=== PATIENT | female | born 1985 | race American Indian/Alaskan Native ===

== ENCOUNTER 2018-10-11 10:29 | Emergency (ER) | payer MEDICAID, OTHER ==
[2018-10-11 10:59] VITALS: BP 135/91
--- NOTE | 2018-10-11 12:00 | Emergency Department Report ---
HPI - General Chief Complaint: Pain General Time Seen by Provider: 10/11/18 11:48 - HPI HPI: This is a 33-year-old female who presents to ED complaining of generalized body aches for the past 2 months. Patient states that she has not been able to see her primary care physician. Patient states every time she is ago that she is unable to see her. Patient states that she is on the Depo-Provera for contraceptives that she has not had a cycle in a long time. She denies fevers/chills/nausea vomiting diarrhea/abdominal pain/chest pain or any other symptoms. ED Past Medical Hx - Past Medical History Previous Medical History?: No - Surgical History Past Surgical History?: Yes Additional Surgical History: - Social History Smoking Status: Current Every Day Smoker Substance Use Type: Alcohol - Medications Home Medications: Home Medications Medication Instructions Recorded Confirmed Last Taken Type Ondansetron [Zofran Odt] 4 mg PO ONCE #14 tab.rapdis 08/05/14 Unknown Rx Cyclobenzaprine [Flexeril] 10 mg PO QHS PRN #20 tablet 10/11/18 Unknown Rx Ibuprofen [Motrin] 800 mg PO Q8HR #30 tablet 10/11/18 Unknown Rx ED Review of Systems ROS: Stated complaint: JOINT PAIN Other details as noted in HPI Comment: All other systems reviewed and negative Physical Exam - Physical Exam Vital Signs: Vital Signs 10/11/18 10:55 Temperature 98.8 F Pulse Rate 78 Respiratory 16 Rate Blood Pressure 135/91 O2 Sat by Pulse 100 Oximetry Physical Exam: GENERAL: Alert and oriented x3, no apparent distress, Normal Gait, atraumatic. HEAD: Head is normocephalic and a-traumatic. LUNGS: Symetrical with respiration, No wheezing, no rales or crackles, CTAB. HEART: S1, S2 present, regular rate and rhythm without murmur, no rubs, no gallops. Non tender to palpation BACK: Full range of motion, no spinal tenderness, nontender to palpation. EXTREMITIES/MUSCULOSKELETAL: No cyanosis, clubbing, rash, lesions or edema. Full ROM bilaterally. UE/LE Pulses 2+ bilaterally. LE and UE 5+ strength bilaterally NEUROLOGIC: The patient is cooperative with no focal neurologic deficits. SKIN: Warm and dry, No lesions, No ulceration or induration present. ED Course Vital Signs 10/11/18 10:55 Temperature 98.8 F Pulse Rate 78 Respiratory 16 Rate Blood Pressure 135/91 O2 Sat by Pulse 100 Oximetry ED Medical Decision Making - Lab Data Result diagrams: 10/11/18 12:16 10/11/18 12:16 - Medical Decision Making 33-year-old female presents with generalized body aches. Labs show normal results. discussed the patient will follow up with primary care physician. Critical care attestation.: If time is entered above; I have spent that time in minutes in the direct care of this critically ill patient, excluding procedure time. ED Disposition Clinical Impression: Generalized body aches Disposition: DC-01 TO HOME OR SELFCARE Is pt being admited?: No Does the pt Need Aspirin: No Condition: Stable Instructions: Trigger Point Pain (ED), Musculoskeletal Pain (ED) Additional Instructions: Make sure to follow up with the primary care physician as discussed. Take all your medications as you've been prescribed. If you have any worsening symptoms or develop new symptoms please return to ED immediately. Prescriptions: Cyclobenzaprine [Flexeril] 10 mg PO QHS PRN #20 tablet PRN Reason: Muscle Spasm Ibuprofen [Motrin] 800 mg PO Q8HR #30 tablet Referrals: JESSICA TUTTLE MD [Primary Care Provider] - 3-5 Days [facility] [Outside] - 3-5 Days [facility] [Outside] - 3-5 Days Forms: Work/School Release Form(ED) Time of Disposition: 13:07
[2018-10-11 12:33] LABS: Basophils # (Auto) 0.1 K/mm3 (0.0-0.1); Basophils % (Auto) 1.2 % (0.0-1.8); Eosinophils # (Auto) 0.1 K/mm3 (0.0-0.4); Eosinophils % (Auto) 1.4 % (0.0-4.3); Hemoglobin 11.8 gm/dl (10.1-14.3); Lymphocytes # (Auto) 3.3 K/mm3 (1.2-5.4); Lymphocytes % (Auto) 38.5 % (13.4-35.0); Mean Corpuscular HGB Conc 32 % (30-34); Monocytes # (Auto) 0.5 K/mm3 (0.0-0.8); Monocytes % (Auto) 5.3 % (0.0-7.3); Platelet Count 229 K/mm3 (140-440); Red Blood Count 5.31 M/mm3 (3.65-5.03); Red Cell Distribution Width 18.5 % (13.2-15.2)
[2018-10-11 12:35] LABS: Mean Corpuscular Volume 70 fl (79-97)
[2018-10-11 12:59] LABS: Alanine Aminotransferase 18 units/L (7-56); Albumin 4.5 g/dL (3.9-5); BUN/Creatinine Ratio 15; Blood Urea Nitrogen 9 mg/dL (7-17); Calcium 9.2 mg/dL (8.4-10.2); Hemolysis Index 5
== END 2018-10-11 13:15 | disposition home or self-care (01) ==
LOC: ED 10:29
DX: M79.10 Myalgia, unspecified site (principal); F17.200 Nicotine dependence, unspecified, uncomplicated
CPT/HCPCS: 36415; 80053; 84703; 85025; 99283

== ENCOUNTER 2022-03-26 11:49 | Emergency (ER) | payer MEDICAID ==
[2022-03-26 12:55] LABS: Basophils # (Auto) 0.1 K/mm3 (0.0-0.1); Basophils % (Auto) 0.5 % (0.0-1.8); Eosinophils # (Auto) 0.1 K/mm3 (0.0-0.4); Eosinophils % (Auto) 1.3 % (0.0-4.3); Hematocrit 29.6 % (30.3-42.9); Hemoglobin 9.8 gm/dl (10.1-14.3); Lymphocytes # (Auto) 1.8 K/mm3 (1.2-5.4); Lymphocytes % (Auto) 17.1 % (13.4-35.0); Mean Corpuscular HGB Conc 33 % (30-34); Mean Corpuscular Volume 71 fl (79-97); Monocytes # (Auto) 0.4 K/mm3 (0.0-0.8); Monocytes % (Auto) 3.6 % (0.0-7.3); Platelet Count 202 K/mm3 (140-440); Red Blood Count 4.15 M/mm3 (3.65-5.03); Red Cell Distribution Width 19.1 % (13.2-15.2)
--- NOTE | 2022-03-26 13:00 | XRay Report ---
CHEST 1 VIEW INDICATION: Chest Pain. COMPARISON: None. FINDINGS: Support devices: None. Heart: Normal. Lungs/Pleura: No acute pulmonary or pleural findings. IMPRESSION: 1. No acute findings. Signer Name: Davey Kirk MD Signed: 03/26/2022 12:56 PM Workstation Name: [id number]
[2022-03-26 13:08] LABS: INR 0.97 (0.87-1.13)
[2022-03-26 13:11] LABS: Alanine Aminotransferase 6 units/L (7-56); Albumin 3.6 g/dL (3.9-5); Blood Urea Nitrogen 4 mg/dL (7-17); Calcium 8.6 mg/dL (8.4-10.2); Hemolysis Index 4
[2022-03-26 13:13] LABS: BUN/Creatinine Ratio 8
[2022-03-26] MEDS ORDERED: POTASSIUM CHLORIDE ER 20 MEQ TAB PO ONE (18:44)
[2022-03-26] MEDS ORDERED: ACETAMINOPHEN W/CODEINE 300-30 MG TAB PO ONE (18:44)
--- NOTE | 2022-03-26 19:17 | Emergency Department Report ---
ED Chest Pain HPI - General Chief Complaint: Chest Pain Stated Complaint: CHEST/ 20WKS /BACK/ PAIN/LUPUS FLARE UP Time Seen by Provider: 03/26/22 18:32 Source: patient Mode of arrival: Ambulatory Limitations: No Limitations - History of Present Illness Initial Comments: 36 yo black female with pmh of Lupus presents to ED for the evaluation of chest pain. She states that she is at 20 weeks gestation and has had a persistent cough for the past 2 weeks. She states that she now has pain to her left lower chest area with coughing, movement, and palpation. She states that she has not been taking any medication for cough because she is and recently stopped taking prednisone for Lupus. She states that she manages her Lupus with intermittent steroids. She denies fever, sob, n/v, dizziness, diaphoresis, hemoptysis and leg pain. MD Complaint: chest pain -: week(s) (2) Onset: during rest Pain Location: left chest Pain Radiation: none Severity: moderate Severity scale (0 -10): 5 Quality: aching Consistency: intermittent Worsens With: inspiration, palpation, movement re: denies: nausea, vomting, diaphoresis, dyspnea, sense of impending doom Other Symptoms: cough. denies: fever, syncope, rash, acid taste in mouth, leg swelling, palpitations, burping Treatments Prior to Arrival: none - Related Data On Oral Contraceptives: No Previous Rx's Medication Instructions Recorded Last Taken Type Ondansetron [Zofran Odt] 4 mg PO ONCE #14 tab.rapdis 08/05/14 Unknown Rx Cyclobenzaprine [Flexeril] 10 mg PO QHS PRN #20 tablet 10/11/18 Unknown Rx Ibuprofen [Motrin] 800 mg PO Q8HR #30 tablet 10/11/18 Unknown Rx Acetaminophen/Codeine [Tylenol 1 tab PO Q6H PRN #6 tab 03/26/22 Unknown Rx /Codeine # 3 tab] Loratadine [Claritin] 10 mg PO DAILY #15 tab 03/26/22 Unknown Rx Allergies Allergy/AdvReac Type Severity Reaction Status Date / Time No Known Allergies Allergy Verified 03/26/22 15:57 Heart Score - HEART Score History: Slightly suspicious EKG: Normal Age: < 45 Risk factors: 1-2 risk factors Troponin: < normal limit HEART Score: 1 - EKG Read Time Time EKG Completed: 12:23 EKG Read Time: 12:25 - Critical Actions Critical Actions: 0-3 pts:0.9-1.7%risk of adverse cardiac event.Candidate for discharge ED Review of Systems ROS: Stated complaint: CHEST/ 20WKS /BACK/ PAIN/LUPUS FLARE UP Other details as noted in HPI Comment: All other systems reviewed and negative Constitutional: denies: chills, diaphoresis, fever, malaise, weakness Respiratory: denies: shortness of breath Cardiovascular: chest pain Gastrointestinal: denies: abdominal pain, nausea, vomiting, diarrhea, hematemesis, melena, hematochezia Genitourinary: denies: urgency, dysuria Musculoskeletal: denies: back pain Neurological: denies: headache, weakness ED Past Medical Hx - Surgical History Additional Surgical History: - Social History Smoking Status: Current Every Day Smoker Substance Use Type: Alcohol - Medications Home Medications: Home Medications Medication Instructions Recorded Confirmed Last Taken Type Ondansetron [Zofran Odt] 4 mg PO ONCE #14 tab.rapdis 08/05/14 Unknown Rx Cyclobenzaprine [Flexeril] 10 mg PO QHS PRN #20 tablet 10/11/18 Unknown Rx Ibuprofen [Motrin] 800 mg PO Q8HR #30 tablet 10/11/18 Unknown Rx Acetaminophen/Codeine [Tylenol 1 tab PO Q6H PRN #6 tab 03/26/22 Unknown Rx /Codeine # 3 tab] Loratadine [Claritin] 10 mg PO DAILY #15 tab 03/26/22 Unknown Rx ED Physical Exam - General Limitations: No Limitations General appearance: alert, in no apparent distress - Head Head exam: Present: atraumatic, normocephalic - Eye Eye exam: Present: normal appearance. Absent: conjunctival injection - ENT ENT exam: Present: normal orophraynx. Absent: normal exam (bilateral nasal mucosal edema noted. ) - Neck Neck exam: Present: normal inspection, full ROM. Absent: tenderness, lymphadenopathy - Respiratory Respiratory exam: Present: normal lung sounds bilaterally, chest wall tenderness. Absent: respiratory distress, wheezes, rales, rhonchi, stridor - Cardiovascular Cardiovascular Exam: Present: regular rate, normal heart sounds - GI/Abdominal GI/Abdominal exam: Present: soft, normal bowel sounds. Absent: distended, tenderness, guarding, rebound, rigid - Extremities Exam Extremities exam: Present: normal inspection, full ROM, normal capillary refill. Absent: tenderness, pedal edema, joint swelling, calf tenderness - Back Exam Back exam: Present: normal inspection. Absent: CVA tenderness (R), CVA tenderness (L) - Neurological Exam Neurological exam: Present: alert, oriented X3, CN II-XII intact - Psychiatric Psychiatric exam: Present: normal affect, normal mood - Skin Skin exam: Present: warm, dry, intact, normal color ED Course Vital Signs 03/26/22 03/26/22 12:04 19:32 Temperature 98.8 F Pulse Rate 81 83 Respiratory 16 Rate Blood Pressure 113/58 121/64 [Right] O2 Sat by Pulse 98 97 Oximetry AMANDA score - Amanda Score Age > 65: (0) No Aspirin use within the Past 7 Days: (0) No 3 or more CAD Risk Factors: (0) No 2 or more Angina events in past 24 hrs: (1) Yes Known CAD with more than 50% Stenosis: (0) No Elevated Cardiac Markers: (0) No ST Deviation Greater than 0.5mm: (0) No AMANDA Score: 1 ED Medical Decision Making - Lab Data Result diagrams: 03/26/22 12:13 03/26/22 12:13 - EKG Data EKG shows normal: sinus rhythm Rate: normal - EKG Data Interpretation: no acute changes, normal EKG - Radiology Data Radiology results: report reviewed, image reviewed CXR: FINDINGS: Support devices: None. Heart: Normal. Lungs/Pleura: No acute pulmonary or pleural findings. IMPRESSION: 1. No acute findings. - Medical Decision Making 36 yo black female with pmh of Lupus presents to ED for the evaluation of chest pain. She states that she is at 20 weeks gestation and has had a persistent cough for the past 2 weeks. She states that she now has pain to her left lower chest area with coughing, movement, and palpation. She states that she has not been taking any medication for cough because she is and recently stopped taking prednisone for Lupus. She states that she manages her Lupus with intermittent steroids. She denies fever, sob, n/v, dizziness, diaphoresis, hemoptysis and leg pain. Noted to have chest wall tenderness on exam, EKG without any acute ischemic changes noted, troponin wnl, and pain mostly resolved after medication. Low suspicion for ACS. Hypokalemia treated with one time dose of KCL 40 mEq and UTI being managed per her program supervisor. Patient will be discharged home with tylenol #3 to use as needed for pain and cough and encouraged to follow up with her pcp and program supervisor for further evaluation and management. She is advised to follow up in ED as needed. She verbalizes understanding of and agreement with plan of care. Critical care attestation.: If time is entered above; I have spent that time in minutes in the direct care of this critically ill patient, excluding procedure time. ED Disposition Clinical Impression: URI with cough and congestion, Hypokalemia UTI (urinary tract infection) Qualifiers: Urinary tract infection type: acute cystitis Hematuria presence: without hematuria Qualified Code(s): N30.00 - Acute cystitis without hematuria Disposition: HOME / SELF CARE / HOMELESS Is pt being admited?: No Does the pt Need Aspirin: No Condition: Stable Instructions: Hypokalemia, Upper Respiratory Infection, Adult, [id number], Potassium Content of Foods Additional Instructions: Take medications as prescribed. Use Tylenol as needed for pain. Follow-up with [facility] or your primary care provider if no improvement or worsening symptoms. Return to the emergency department as needed. Prescriptions: Loratadine [Claritin] 10 mg PO DAILY #15 tab Acetaminophen/Codeine [Tylenol /Codeine # 3 tab] 1 tab PO Q6H PRN #6 tab PRN Reason: Pain , Severe (7-10) Referrals: JESSICA TUTTLE MD [Primary Care Provider] - 3-5 Days Time of Disposition: 19:19
[2022-03-26 19:33] VITALS: BP 121/64
[2022-03-26 20:46] LABS: Bacteria,Urine 4+ /HPF (Negative); Hyaline Casts,Urine 1 /LPF; Mucus,Urine FEW /HPF
[2022-03-26 20:58] LABS: Bilirubin,Urine Negative (Negative); Blood,Urine 1+ (Negative); Color,Urine Yellow (Yellow)
--- NOTE | 2022-03-28 14:37 | Electrocardiograph Report ---
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
== END 2022-03-26 19:32 | disposition home or self-care (01) ==
LOC: ED 11:49
DX: O99.512 Diseases of the respiratory system complicating pregnancy, second trimester (principal); O23.42 Unspecified infection of urinary tract in pregnancy, second trimester; J06.9 Acute upper respiratory infection, unspecified; N39.0 Urinary tract infection, site not specified; Z3A.20 20 weeks gestation of pregnancy; F17.200 Nicotine dependence, unspecified, uncomplicated
CPT/HCPCS: 36415; 71045; 80053; 81001; 84484; 85025; 85610; 87086; 93005; 99284